=== PATIENT | male | born 1985 | race Caucasian/White ===

== ENCOUNTER 2016-10-02 14:48 | Emergency (ER) | payer OTHER ==
[~2016-10-02] VITALS: Ht 190.5 cm; Wt 132.0 kg
[2016-10-02 15:04] VITALS: BP 128/81; PULSE 141; RESP 20; TEMP 98.5; O2SAT 96
[2016-10-02] MEDS ORDERED: SODIUM CHLOR 0.9% 1000 ML INJ 1,000 ML IV ONE (15:15)
[2016-10-02] MEDS ORDERED: SODIUM CHLORIDE 0.9% FLUSH 5 ML FLUSH IVF PRN (15:15)
--- NOTE | 2016-10-02 15:23 | PD ---
HPI Chief Complaint: Psychiatric Symptoms Time Seen by Provider: 15:17 Travel History International Travel<30 days: No Contact w/Intl Traveler<30days: No Traveled to known affect area: No History of Present Illness HPI 31-year-old male presents to the emergency department under act. According to the law enforcement report the patient was running up and down the street trying to let himself into [employer] vehicles and the passengers of the vehicles were afraid for their lives. According to the report the patient had admitted to [facility]. Patient reports taking Xanax and injecting heroin yesterday. Reports tobacco use daily. Reports alcohol use daily. He denies suicidal or homicidal ideations. Denies history of suicidal attempts or ideations. Denies visual or auditory hallucinations. Has no emergent medical complaints at this time. He denies fever, chills, nausea or vomiting. Denies chest pain, shortness of breath, abdominal pain. Denies allergies. Denies significant past medical history. No other modifying factors or associated signs and symptoms. PFSH Past Medical History Medical History: Denies Significant Hx ADHD: Yes Asthma: Yes ( A CHILD) Depression: Yes Diabetes: No Diminished Hearing: No Psychiatric: Yes Respiratory: Yes Tetanus Vaccination: Unknown Influenza Vaccination: No Past Surgical History Surgical History: No Previous Surgery Social History Alcohol Use: Yes (PT STATES "A LOT, EVERY DAY") Tobacco Use: Yes (2 PPD) Substance Use: Yes (PT STATES "EVERYTHING") Allergies-Medications (Allergen,Severity, Reaction): Coded Allergies: No Known Allergies (Unverified , 10/02/16) Reported Meds & Prescriptions Reported Meds & Active Scripts Active No Active Prescriptions or Reported Medications Review of Systems Except as stated in HPI: all other systems reviewed are Neg Physical Exam Narrative GENERAL: Well-nourished, well-developed male patient, in no acute distress SKIN: Warm and dry. Diaphoretic. HEAD: Atraumatic. Normocephalic. EYES: Pupils dilated, equal and round. ENT: Mucosa pink and moist. NECK: Supple. Trachea midline. CARDIOVASCULAR: Tachycardic rate and rhythm. No murmur appreciated. RESPIRATORY: No accessory muscle use. Clear to auscultation. Breath sounds equal bilaterally. No retractions or tachypnea. GASTROINTESTINAL: Abdomen soft, non-tender, nondistended. Hepatic and splenic margins not palpable. Bowel sounds are active 4 quadrants. MUSCULOSKELETAL: No obvious deformities. No clubbing. No cyanosis. No edema. NEUROLOGICAL: Awake and alert. Oriented 3. No obvious cranial nerve deficits. Motor grossly within normal limits. Normal speech. Moves all extremities. 5/5 strength to all extremities. PSYCHIATRIC: No delusional thought processes. No hallucinations. Data Data Last Documented VS Vital Signs Date Time Temp Pulse Resp B/P Pulse Ox O2 Delivery O2 Flow Rate FiO2 10/02/16 17:54 97.7 81 16 141/74 95 10/02/16 15:45 Room Air Orders Complete Blood Count With Diff (10/02/16 15:01) Comprehensive Metabolic Panel (10/02/16 15:01) Drug Screen, Random Urine (10/02/16 15:01) Alcohol (Ethanol) (10/02/16 15:01) Salicylates (Aspirin) (10/02/16 15:01) Tylenol (Acetaminophen) (10/02/16 15:01) Lorazepam Inj (Ativan Inj) (10/02/16 15:45) Haloperidol Inj (Haldol Inj) (10/02/16 15:45) Diet Regular Basic (10/02/16 Dinner) Labs Laboratory Tests Test 10/02/16 16:07 White Blood Count 7.1 TH/MM3 Red Blood Count 5.08 MIL/MM3 Hemoglobin 16.0 GM/DL Hematocrit 47.0 % Mean Corpuscular Volume 92.4 FL Mean Corpuscular Hemoglobin 31.5 PG Mean Corpuscular Hemoglobin 34.1 % Concent Red Cell Distribution Width 14.3 % Platelet Count 222 TH/MM3 Mean Platelet Volume 8.4 FL Neutrophils (%) (Auto) 76.4 % Lymphocytes (%) (Auto) 13.1 % Monocytes (%) (Auto) 9.6 % Eosinophils (%) (Auto) 0.3 % Basophils (%) (Auto) 0.6 % Neutrophils # (Auto) 5.4 TH/MM3 Lymphocytes # (Auto) 0.9 TH/MM3 Monocytes # (Auto) 0.7 TH/MM3 Eosinophils # (Auto) 0.0 TH/MM3 Basophils # (Auto) 0.0 TH/MM3 CBC Comment DIFF FINAL Differential Comment Sodium Level 135 MEQ/L Potassium Level 4.2 MEQ/L Chloride Level 100 MEQ/L Carbon Dioxide Level 28.8 MEQ/L Anion Gap 6 MEQ/L Blood Urea Nitrogen 16 MG/DL Creatinine 1.20 MG/DL Estimat Glomerular Filtration 71 ML/MIN Rate Random Glucose 118 MG/DL Calcium Level 9.9 MG/DL Total Bilirubin 1.3 MG/DL Aspartate Amino Transf 427 U/L (AST/SGOT) Alanine Aminotransferase 1010 U/L (ALT/SGPT) Alkaline Phosphatase 79 U/L Total Protein 8.4 GM/DL Albumin 4.3 GM/DL Salicylates Level LESS THAN 1.7 MG/DL Acetaminophen Level LESS THAN 2.0 MCG/ML Ethyl Alcohol Level LESS THAN 3 MG/DL MDM Medical Decision Making Medical Screen Exam Complete: Yes Emergency Medical Condition: Yes Medical Record Reviewed: Yes Differential Diagnosis Medical clearance for psych evaluation, multiple substance abuse, drug overuse Narrative Course Patient presents under a [place] act. Physical examination unremarkable. Heart rate 140 and the patient is diaphoretic. 1 L normal saline fluid bolus ordered. Patient has no medical complaints to report. Psych screen has been ordered. If the laboratory results are unremarkable, the patient will be medically cleared for psychiatric evaluation and disposition. 1547: Patient was brought back to the psychiatric unit secondary to being a flight risk. He was given Gatorade encouraged to drink loss of fluids. Haldol and Ativan were administered. Normal saline fluid bolus and IV canceled at this time. Will wait and review labs and vital sign recheck to determine if IV fluids are needed. 1905: Patient positive for amphetamines. EtOH less than 3. AST 427. ALT 1010. Discussed elevated liver functions discussed with patient and instructed patient to follow up outpatient. Patient verbalized understanding and agreement. Diagnosis Primary Impression: Substance abuse Scripts No Active Prescriptions or Reported Meds Condition: Stable Deena Chun Oct 02, 2016 15:23
[2016-10-02 15:45] VITALS: BP 142/86; PULSE 146; RESP 20; O2SAT 98
[2016-10-02] MEDS ORDERED: HALOPERIDOL LACTATE 5 MG/ML AMP IM ONE (15:45)
[2016-10-02] MEDS ORDERED: LORazepam 2 MG/ML VIAL IM ONE (15:45)
[2016-10-02 16:49] LABS: AUTOMATED NEUTROPHIL # 5.4 TH/MM3 (1.8-7.7); BASOPHIL % 0.6 % (0.0-2.0); EOSINOPHIL % 0.3 % (0.0-4.0); HEMO FLAGS DIFF FINAL; LYMPH % 13.1 % (9.0-44.0); LYMPHOCYTE # 0.9 TH/MM3 (1.0-4.8); MEAN CELL VOLUME 92.4 FL (80.0-100.0); MEAN CORPUSCULAR HEMOGLOBIN 31.5 PG (27.0-34.0); MEAN CORPUSCULAR HGB CONC 34.1 % (32.0-36.0); MONO % 9.6 % (0.0-8.0); NEUT % 76.4 % (16.0-70.0); PLATELET COUNT 222 TH/MM3 (150-450); RED BLOOD COUNT 5.08 MIL/MM3 (4.50-5.90); RED CELL DISTRIBUTION WIDTH 14.3 % (11.6-17.2); WHITE BLOOD COUNT 7.1 TH/MM3 (4.0-11.0)
[2016-10-02 17:09] LABS: ANION GAP 6 MEQ/L (5-15); AST (GOT) 427 U/L (15-37); BICARBONATE 28.8 MEQ/L (21.0-32.0); BLOOD UREA NITROGEN 16 MG/DL (7-18); CHLORIDE 100 MEQ/L (98-107); GLOMERULAR FILTRATION RATE 71 ML/MIN (>89); POTASSIUM 4.2 MEQ/L (3.5-5.1); SODIUM (NA) 135 MEQ/L (136-145)
[2016-10-02 17:20] LABS: ALKALINE PHOSPHATASE 79 U/L (45-117); ALT (GPT) 1010 U/L (12-78); TOTAL BILIRUBIN ADULT 1.3 MG/DL (0.2-1.0)
[2016-10-02 17:27] LABS: ACETAMINOPHEN LESS THAN 2.0 MCG/ML (10.0-30.0)
[2016-10-02 17:54] VITALS: BP 141/74; PULSE 81; RESP 16; TEMP 97.7; O2SAT 95
[2016-10-02 22:00] VITALS: BP 115/68; PULSE 85; RESP 18; O2SAT 97
[2016-10-03 02:12] VITALS: BP 132/62; PULSE 83; RESP 18; O2SAT 97
[2016-10-03 06:09] VITALS: BP 149/66; PULSE 92; RESP 18; O2SAT 99
== END 2016-10-03 12:42 ==
LOC: NEPJ 14:48
DX: F19.10 Other psychoactive substance abuse, uncomplicated (principal); F17.200 Nicotine dependence, unspecified, uncomplicated; F90.9 Attention-deficit hyperactivity disorder, unspecified type
CPT/HCPCS: 80053; 80307; 80320; 85025; 96372; 99285; J1630; J2060; 80329; G0480